=== PATIENT | female | born 1960 | race Caucasian/White ===

== ENCOUNTER → 2017-09-27 | Outpatient (CLI) | payer OTHER, BC ==
[~2017-09-27] MED LIST: DIPH50 PO; FAMO20 PO; FISH OIL 1000 MG; OMEP40CA12 PO; OXCA150; OXYACE5T PO; PRED20 PO; SERT100; SLO-NIACIN; SUCR1 PO; SULTRISS
== END ==
LOC: LAB EV 16:40
DX: L02.91 Cutaneous abscess, unspecified (principal)
CPT/HCPCS: 87070; 87075; 87205

== ENCOUNTER → 2019-02-05 | Outpatient (CLI) | payer BC | END | disposition home or self-care (01) | LOC: LAB SHORT 08:00 → LAB EV 08:00 | DX: R30.0 Dysuria (principal) | CPT/HCPCS: 87077; 87086; 87186 ==

== ENCOUNTER → 2019-06-03 | Outpatient (CLI) | payer BC | LOC: LAB 16:28 → LAB SHORT 16:28 | PROVIDERS: Nurse Practitioner Family | DX: Z01.419 Encounter for gynecological examination (general) (routine) without abnormal findings (principal) | CPT/HCPCS: G0145 ==

== ENCOUNTER → 2020-06-03 | Outpatient (CLI) | payer BC | END | disposition home or self-care (01) | LOC: LAB EV 12:05 → LAB SHORT 12:05 | DX: J06.9 Acute upper respiratory infection, unspecified (principal); Z20.828 Contact with and (suspected) exposure to other viral communicable diseases | CPT/HCPCS: U0003 ==

== ENCOUNTER 2021-05-02 07:29 | Inpatient (IN) | payer BC ==
[~2021-05-02] VITALS: Ht 177.8 cm; Wt 108.9 kg
[~2021-05-02 07:29] MED LIST changes: -SERT100; +SERT100 PO
[2021-05-02 09:00] LABS: BASOPHILS ABSOLUTE AUTO 0.08 K/mm3 (0.00-0.23); BASOPHILS PERCENT AUTO 1 % (0-2); EOSINOPHILS ABSOLUTE AUTO 0.02 K/mm3 (0.00-0.68); EOSINOPHILS PERCENT AUTO 0 % (0-6); Hematocrit 51.8 % (33.0-51.0); Hemoglobin 16.8 g/dL (11.5-16.0); IMMATURE GRAN PERCENT AUTO 1 % (0-1); LYMPHOCYTES ABSOLUTE AUTO 1.77 K/mm3 (0.84-5.20); LYMPHOCYTES PERCENT AUTO 10 % (21-46); MONOCYTES ABSOLUTE AUTO 1.22 K/mm3 (0.16-1.47); MONOCYTES PERCENT AUTO 7 % (4-13); Mean Corpuscular HGB 25.7 pg (26.0-34.0); Mean Corpuscular HGB Conc 32.4 g/dL (31.5-36.5); Mean Corpuscular Volume 79 fL (80-100); Mean Platelet Volume 11.9 fL (9.1-12.4); NEUTROPHILS ABSOLUTE AUTO 14.24 K/mm3 (1.96-9.15); NEUTROPHILS PERCENT AUTO 82 % (41-73); Platelet Count 289 K/mm3 (150-400); RDW Coefficient Variation 16.5 % (11.7-14.2); RDW Standard Deviation 43.4 fL (35.1-46.3); Red Blood Cell Count 6.53 M/mm3 (3.80-5.20); White Blood Cell Count 17.43 K/mm3 (4.00-11.30)
[2021-05-02 09:21] LABS: Albumin, Blood 3.7 g/dL (3.4-5.0); Albumin/Globulin Ratio 1.1 (0.8-1.8); Bilirubin, Total 0.7 mg/dL (0.1-1.0); Bun/Creatinine Ratio 44.1 (12.0-20.0); Calcium, Blood 7.3 mg/dL (8.5-10.1); Creatinine, Blood 1.18 mg/dL (0.40-1.00); Globulin, Blood 3.5 g/dL (2.2-4.0); Potassium, Blood 4.4 mmol/L (3.5-5.5); Total Protein, Blood 7.2 g/dL (6.4-8.2)
[2021-05-02 09:49] LABS: Source, Urine Clean Catch
[2021-05-02 10:08] LABS: Appearance, Urine Hazy (Clear); Bilirubin, Urine Neg (Neg); Blood, Urine 2+ (Neg); Color, Urine Yellow (P-Yellow); Glucose Qualitative, Urine Neg (Neg); Ketones, Urine Neg (Neg); Leukocyte Esterase, Urine 3+ (Neg); Nitrite, Urine Neg (Neg); Protein, Urine 2+ (Neg); Specific Gravity, Urine 1.025 (1.003-1.022); Urobilinogen, Urine NORM (Normal)
[2021-05-02 10:35] LABS: Bacteria Mod /hpf; Squamous Epithelial Cells Few /hpf (Few)
[2021-05-02 10:51] LABS: Red Blood Cells, Urine 0-2 /hpf (0-2)
[2021-05-02 10:52] LABS: Granular Casts 0-2 /lpf (0); WBC Cast 0-2 /lpf (0)
[2021-05-02 12:19] LABS: Albumin, Blood 3.1 g/dL (3.4-5.0); Bilirubin, Direct 0.1 mg/dL (0.0-0.3); Bilirubin, Indirect 0.4 mg/dL (0.1-0.7); Bilirubin, Total 0.5 mg/dL (0.1-1.0); Bun/Creatinine Ratio 43.8 (12.0-20.0); Calcium, Blood 6.2 mg/dL (8.5-10.1); Creatinine, Blood 1.05 mg/dL (0.40-1.00); Globulin, Blood 3.2 g/dL (2.2-4.0); Total Protein, Blood 6.3 g/dL (6.4-8.2)
[2021-05-02 12:59] LABS: CHOL/HDL RATIO 8.4; Cholesterol 152 mg/dL (50-200); HDL Cholesterol 18 mg/dL (>39); LDL/HDL RATIO 5.6; Low Density Lipoprotein Chol 102 mg/dL (0-110); Triglycerides 162 mg/dL (30-160); Very Low Density Lipoprot Chol 32 mg/dL (6-32)
--- NOTE | 2021-05-02 17:51 | NUR ---
PT PLEASANT TODAY SINCE TRANSFER FROM ER. IS ON FULL LIQUID DIET, HOWEVER, TRIED COUPLE ICE CHIPS, CAUSED PAIN. RECOMMENDED HER HER TO STOP TAKING. SHE GOOD WITH THAT. MED FOR PAIN AND NAUSEA. NO NEW CONCERNS NOTED. LUNGS CLEAR, RESP EASY, UNLABORED. BED IN LOW POSITION, CALLLITE IN REACH, CALLS APPROP
[2021-05-03 05:13] LABS: Hematocrit 38.2 % (33.0-51.0); Hemoglobin 12.2 g/dL (11.5-16.0); Mean Corpuscular HGB 25.5 pg (26.0-34.0); Mean Corpuscular HGB Conc 31.9 g/dL (31.5-36.5); Mean Corpuscular Volume 80 fL (80-100); Mean Platelet Volume 12.5 fL (9.1-12.4); Platelet Count 197 K/mm3 (150-400); RDW Coefficient Variation 15.4 % (11.7-14.2); RDW Standard Deviation 44.5 fL (35.1-46.3); Red Blood Cell Count 4.78 M/mm3 (3.80-5.20); White Blood Cell Count 8.77 K/mm3 (4.00-11.30)
[2021-05-03 05:33] LABS: Anion Gap 7 mmol/L (6-16); Blood Urea Nitrogen 30 mg/dL (8-24); Bun/Creatinine Ratio 32.7 (12.0-20.0); CO2, Blood 22 mmol/L (21-32); Calcium, Blood 7.1 mg/dL (8.5-10.1); Chloride, Blood 106 mmol/L (98-108); Creatinine, Blood 0.92 mg/dL (0.40-1.00); Glomerular Filtration Rate >60 (60-); Glucose, Blood 134 mg/dL (70-99); Potassium, Blood 3.8 mmol/L (3.5-5.5); Sodium, Blood 135 mmol/L (136-145)
[2021-05-03 05:58] LABS: BAND PERCENT MAN 11 % (0-8); BASOPHILS PERCENT MAN 0 % (0-2); EOSINOPHILS PERCENT MAN 0 % (0-6); LYMPHOCYTES ABSOLUTE MAN 0.87 K/mm3 (0.84-5.20); LYMPHOCYTES PERCENT MAN 10 % (21-46); MONOCYTES PERCENT MAN 8 % (4-13); NEUTROPHILS ABSOLUTE MAN 7.19 K/mm3 (1.96-9.15); SEG NEUTROPHILS PERCENT MAN 71 % (41-73); TOTAL CELLS COUNTED 100
--- NOTE | 2021-05-03 07:47 | NUR ---
SHIFT SUMMARY AOX4. VSS. PT ATTEMPTED TO HAVE ICE CHIPS & STATED IT INCREASED HER PAIN, UNABLE TO TOLERATE PO. GAVE 2MG IV MORPHINE & PERCOCET 1X EACH FOR PAIN. DENIES ANY N/V. CALL LIGHT IN REACH.
--- NOTE | 2021-05-03 12:47 | NUR ---
PT IS ALERT ORIENTED X 3,PAIN COMPLAINING OF PAIN,MEDICATED WITH MORPHINE IV, PT DENIES N/V. PT IS RESTING IN BED, BED IN LOW POSITION CALL LIGHT WITHIN REACH, PT IS WAITING TO BE TRANSPER TO ROOM 426.
--- NOTE | 2021-05-03 13:49 | NUR ---
PT WAS BROUGHT OVER TO [facility] IP VIA W/C. PT TRANSFERRED WELL FROM CHAIR TO BED. PT AMBULATED INDEPENDENTLY. INITIAL VITALS SIGNS TAKEN. PT IS RESTING, CALL LIGHT WITHIN REACH. WILL CONTINUE TO MONITOR.
--- NOTE | 2021-05-03 14:11 | NUR ---
PT RESTING, C/O PAIN 8/10 ALL OVER. PT STATES HER PAIN TOLERANCE IS AT 1/10. WILL MEDICATE WITH PO PAIN MED AT THIS TIME. CALL LIGHT WITHIN REACH. WILL CONTINUE TO MONITOR.
--- NOTE | 2021-05-03 15:24 | NUR ---
PT SLEEPING IN HER ROOM. CALL LIGHT WITHIN REACH. WILL CONTINUE TO MONITOR
--- NOTE | 2021-05-03 16:38 | NUR ---
ADMIT: 05/02/2021 DISCHARGE: TBD DX: ACUTE PANCREATITIS CC: Gianni GREENBERG PROPOSAL MANAGER/EDITOR & [employer]ER REFERRAL - ADMIT: 05/02/2021 DISCHARGE: TBD DX: ACUTE PANCREATITIS CC: Gianni GREENBERG RESIDENCE: [address] [id number] NEXT OF KIN/CONTACTS: ZARINA BROWN, - [phone] PRIOR TO ADMIT: DME - CPAP CHRONIC CARE MANAGEMENT: REFERRED IN 2017 HH/HOSPICE: NONE UPDATE 05/03/21: PER CHART REVIEW, PATIENT'S CONDITION IS IMPROVING. ANTICIPATE THAT PT. IS LIKELY TO BE APPROPRIATE FOR DISCHARGE WITHIN 24-72 HOURS PENDING HER ABILITY TO TOLERATE AN ADEQUATE ORAL INTAKE. AT THIS TIME, ANTICIPATE DISCHARGE NEEDS TO INCLUDE: HOSPITAL F/U WITHIN 5-7 DAYS WITH PCP. CURRENTLY DISCHARGE PLAN IS FOR PT. TO RETURN HOME WITH ZARINA ONCE APPROPRIATE. PLAN TO CONTINUE TO FOLLOW PATIENT'S CARE AND PROVIDE CARE COORDINATION/DISCHARGE PLANNING NEEDED.
--- NOTE | 2021-05-03 17:09 | NUR ---
DR. BURKS IN TO SEE PT. PT SLEEPING AT THIS TIME. WILL CALL DR. BURKS BACK ABOUT PT'S PAIN MEDICATION REGIMEN AT HOME PER DR. DAS. CALL LIGHT WITHIN REACH.
--- NOTE | 2021-05-03 19:19 | NUR ---
PT CAME TODAY FROM MEDICAL FLOOR. PT HAS HAD PAIN THIS AFTERNOON AND MANAGED WITH MEDICATIONS. PT MOVES INDENPENDENTLY IN ROOM. CALL LIGHT WITHIN REACH. PT WAS ABLE TO TOLERATED SOME LIQUID DIET. IV FLUIDS ON CONTINOUS INFUSION. REPORT GIVEN TO [facility] NURSE.
--- NOTE | 2021-05-03 22:33 | NUR ---
PATIENT UP TO RESTROOM AND BACK TO BED. PATIENT REPOSITIONED HERSELF AND NEW CUP OF ICE GIVEN PER PATIENT REQUEST. CALL LIGHT WITHIN REACH AND BED IN LOWEST LOCKED POSITION.
--- NOTE | 2021-05-04 00:53 | NUR ---
PATIENT AMBULATED TO RESTROOM AND BACK TO BED. PATIENT MEDICATED FOR 8/10 PAIN AND REPOSITIONED IN BED. DENIES ANY NAUSEA AT THIS TIME. CALL LIGHT WITHIN REACH AND BED IN LOWEST LOCKED POSITION.
--- NOTE | 2021-05-04 02:23 | NUR ---
PATIENT RESTING COMFORTABLY IN BED. PATIENT CALL LIGHT WITHIN REACH AND BED IN LOWEST LOCKED POSITION.
--- NOTE | 2021-05-04 03:59 | NUR ---
PATIENT UP TO RESTROOM TO VOID AND BACK TO BED. PATIENT MEDICATED FOR PAIN. CALL LIGHT WITHIN REACH AND BED IN LOWEST LOCKED POSITION.
--- NOTE | 2021-05-04 04:00 | NUR ---
PATIENT HAS SLEEP APNEA AND HER O2 DROPPED DOWN TO 89 TO 90 ON ROOM AIR WHEN SLEEPING. PUT PATIENT ON 2LNC WHILE ASLEEP. CALL LIGHT WITHIN REACH AND BED IN LOWEST LOCKED POSITION. WILL CONTINUE TO MONITOR.
--- NOTE | 2021-05-04 06:03 | NUR ---
PATIENT RESTING QUIETLY IN BED. NO ACUTE CHANGES THROUGHOUT SHIFT. VSS
[2021-05-04 06:47] LABS: Alanine Aminotransfer (ALT/SGP 28 U/L (12-78); Albumin, Blood 2.7 g/dL (3.4-5.0); Albumin/Globulin Ratio 0.7 (0.8-1.8); Alk Phos 52 U/L (50-136); Anion Gap 6 mmol/L (6-16); Aspartate Aminotrans (AST/SGOT 34 U/L (12-37); Bilirubin, Total 0.5 mg/dL (0.1-1.0); Blood Urea Nitrogen 14 mg/dL (8-24); Bun/Creatinine Ratio 19.2 (12.0-20.0); CO2, Blood 23 mmol/L (21-32); Calcium, Blood 8.1 mg/dL (8.5-10.1); Chloride, Blood 109 mmol/L (98-108); Creatinine, Blood 0.73 mg/dL (0.40-1.00); Globulin, Blood 3.7 g/dL (2.2-4.0); Glomerular Filtration Rate >60 (60-); Glucose, Blood 112 mg/dL (70-99); Potassium, Blood 3.8 mmol/L (3.5-5.5); Sodium, Blood 138 mmol/L (136-145); Total Protein, Blood 6.4 g/dL (6.4-8.2)
[2021-05-04] MEDS ORDERED: PERCOCET 10-321 EAC2 PO (14:38)
[2021-05-04] MEDS ORDERED: ONDA4 PO (14:39)
--- NOTE | 2021-05-04 15:08 | NUR ---
DISCHARGE NOTE PT STABLE FOR DISCHARGE. IV REMOVED. DISCHARGE INSTRUCTIONS AND DISCHARGE MEDICATIONS REVIEWED WITH PT. PT VERBALIZES UNDERSTANDING AND DENIES QUESTIONS. [facility] PAPER PRESCRIPTION SENT HOME WITH PT. PT DISCHARGED VIA WC TO WAITING CAR.
--- NOTE | 2021-05-04 17:21 | NUR ---
Update 05/04/2021: Pt. potentially appropriate for discharge today per Dr. Pemberton. Patient requesting to go home. D/C approved by Dr. Pemberton. Pt. scheduled for hospital F/U on 05/10/21 with Ella Fraga. Pt. denied any additional needs. Provided with D/C letter, appt. time/date, and [facility] phone number to call with questions or concerns.
== END 2021-05-04 14:57 | disposition home or self-care (01) | DRG 439 ==
LOC: ER 07:29 → ERHOLD 12:33 → MEDS 15:36 → ORSCIP 05-03 13:15
PROVIDERS: Emergency Medicine; Family Medicine; Physician Assistant; ADMIT Internal Medicine
DX: K85.90 Acute pancreatitis without necrosis or infection, unspecified (principal); N17.9 Acute kidney failure, unspecified; E87.2 Acidosis; E86.0 Dehydration; E66.01 Morbid (severe) obesity due to excess calories; R45.1 Restlessness and agitation; E78.00 Pure hypercholesterolemia, unspecified; K21.9 Gastro-esophageal reflux disease without esophagitis; E78.1 Pure hyperglyceridemia; E78.5 Hyperlipidemia, unspecified; K70.0 Alcoholic fatty liver; G47.33 Obstructive sleep apnea (adult) (pediatric); F32.9 Major depressive disorder, single episode, unspecified; Z88.2 Allergy status to sulfonamides; Z98.890 Other specified postprocedural states; Z79.899 Other long term (current) drug therapy; Z79.51 Long term (current) use of inhaled steroids; Z68.34 Body mass index [BMI] 34.0-34.9, adult; Z88.8 Allergy status to other drugs, medicaments and biological substances
CPT/HCPCS: 36415; 74150; 80048; 80053; 80061; 80076; 81001; 82330; 83036; 83690; 83735; 84100; 84484; 85025; 87086; 93005; 93010; 96365; 96375; 96376; 99285-25; A9270; J0696; J1650; J2270; J2405; J7030

== ENCOUNTER 2021-06-24 08:49 | Day surgery (SDC) | payer BC ==
[~2021-06-24] VITALS: Ht 177.8 cm; Wt 98.1 kg
[~2021-06-24 08:49] MED LIST changes: +BUPR150ER PO; +HYOS.125 PO; +ONDA4 PO; +ONDA4ODT MM; +PERCOCET 10-321 EAC2 PO
== END 2021-06-24 10:47 | disposition home or self-care (01) ==
LOC: ORSCSDS 08:49
PROVIDERS: Internal Medicine Gastroenterology
PROC: 0DBL8ZX Excision of Transverse Colon, Via Natural or Artificial Opening Endoscopic, Diagnostic (ICD-10-PCS; principal; 2021-06-24 10:15)
DX: R10.9 Unspecified abdominal pain (principal); K64.8 Other hemorrhoids; D12.3 Benign neoplasm of transverse colon; G47.33 Obstructive sleep apnea (adult) (pediatric); F32.A Depression, unspecified; E66.9 Obesity, unspecified; Z68.32 Body mass index [BMI] 32.0-32.9, adult; Z79.899 Other long term (current) drug therapy
CPT/HCPCS: 88305; J2704; J7120

== ENCOUNTER → 2022-03-31 | Outpatient (CLI) | payer BC ==
[2022-04-06 15:11] LABS: HPV 16 Negative (Negative); HPV 18 Negative (Negative); HPV OTHER HR TYPES Negative (Negative)
== END | disposition home or self-care (01) ==
LOC: LAB SHORT 10:35 → LAB 10:35
PROVIDERS: Internal Medicine
DX: Z12.4 Encounter for screening for malignant neoplasm of cervix (principal)
CPT/HCPCS: 87624; G0145

== ENCOUNTER 2022-09-08 03:01 | Emergency (ER) | payer BC ==
[~2022-09-08] VITALS: Ht 177.8 cm; Wt 106.6 kg
[2022-09-08 03:40] LABS: BASOPHILS ABSOLUTE AUTO 0.07 K/mm3 (0.00-0.23); BASOPHILS PERCENT AUTO 1 % (0-2); EOSINOPHILS ABSOLUTE AUTO 0.16 K/mm3 (0.00-0.68); EOSINOPHILS PERCENT AUTO 2 % (0-6); Hemoglobin 13.1 g/dL (11.5-16.0); IMMATURE GRAN ABSOLUTE AUTO 0.03 K/mm3 (0.00-0.10); IMMATURE GRAN PERCENT AUTO 0 % (0-1); LYMPHOCYTES ABSOLUTE AUTO 1.28 K/mm3 (0.84-5.20); LYMPHOCYTES PERCENT AUTO 15 % (21-46); MONOCYTES ABSOLUTE AUTO 0.58 K/mm3 (0.16-1.47); MONOCYTES PERCENT AUTO 7 % (4-13); Mean Corpuscular HGB 24.9 pg (26.0-34.0); Mean Corpuscular Volume 78 fL (80-100); NEUTROPHILS ABSOLUTE AUTO 6.43 K/mm3 (1.96-9.15); NEUTROPHILS PERCENT AUTO 75 % (41-73); Platelet Count 190 K/mm3 (150-400); RDW Coefficient Variation 14.9 % (11.7-14.2); RDW Standard Deviation 42.2 fL (35.1-46.3); Red Blood Cell Count 5.27 M/mm3 (3.80-5.20); White Blood Cell Count 8.55 K/mm3 (4.00-11.30)
[2022-09-08 04:01] LABS: Albumin/Globulin Ratio 1.2 (0.8-1.8); Bilirubin, Total 0.3 mg/dL (0.1-1.0); Bun/Creatinine Ratio 24.6 (12.0-20.0); Calcium, Blood 9.2 mg/dL (8.5-10.1); Creatinine, Blood 0.69 mg/dL (0.40-1.00); Globulin, Blood 3.2 g/dL (2.2-4.0); Potassium, Blood 3.9 mmol/L (3.5-5.5); Total Protein, Blood 7.2 g/dL (6.4-8.2)
[2022-09-08] MEDS ORDERED: Promethazine HC25 M1 PO (06:28)
[2022-09-08] MEDS ORDERED: LOPE2C PO (06:28)
== END 2022-09-08 07:03 | disposition home or self-care (01) ==
LOC: ER 03:01
PROVIDERS: Student in an Organized Health Care Education/Training Program
DX: R10.9 Unspecified abdominal pain (principal); R19.7 Diarrhea, unspecified; Z88.2 Allergy status to sulfonamides; Z88.8 Allergy status to other drugs, medicaments and biological substances; Z79.899 Other long term (current) drug therapy
CPT/HCPCS: 36415; 74177; 80053; 83690; 84484; 85025; J2550; Q9967

== ENCOUNTER → 2023-07-17 | Outpatient (CLI) | payer BC ==
[~2023-07-17] MED LIST changes: +LOPE2C PO; +Promethazine HC25 M1 PO
[2023-07-18 11:37] LABS: Candida species (DNA Probe) Negative (NEGATIVE); G. vaginalis (DNA Probe) Negative (NEGATIVE); T. vaginalis (DNA Probe) Negative (NEGATIVE)
== END ==
LOC: LAB 16:00 → LAB SHORT 16:00
PROVIDERS: Internal Medicine
DX: N76.0 Acute vaginitis (principal)
CPT/HCPCS: 87480; 87510; 87660